=== PATIENT | female | born 1980 | race Caucasian/White ===

== ENCOUNTER 2019-05-14 16:21 | Emergency (ER) | payer MEDICAID ==
[~2019-05-14] VITALS: Ht 154.9 cm; Wt 56.7 kg
[2019-05-14 16:50] VITALS: Ht 154.9 cm; Wt 56.7 kg
[2019-05-14 19:49] VITALS: BP 102/67
== END 2019-05-14 19:49 | disposition home or self-care (01) ==
LOC: ED 16:21
DX: J20.9 Acute bronchitis, unspecified (principal); Z88.1 Allergy status to other antibiotic agents